=== PATIENT | male | born 1980 | race African-American/Black ===

== ENCOUNTER 2020-03-20 17:30 | Emergency (ER) | payer OTHER ==
[~2020-03-20] VITALS: Ht 170.2 cm; Wt 90.9 kg
--- NOTE | 2020-03-20 18:17 | PHYS DOC ---
Past Medical History Past Medical History: No Pertinent History Smoking Status: Current Every Day Smoker General Adult EDM: Chief Complaint: COUGH HPI: HPI: Patient is a 39 year old male who presents with a cough for 6 weeks. Patient says he has had a subjective fever and chills cough headache sneezing for the last 6 weeks. He says he does not seek medical treatment in this timeframe. Patient has not had any vomiting or diarrhea. Patient has no known sick contacts Review of Systems: Review of Systems: Constitutional: Subjective fever, chills Eyes: Denies change in visual acuity. [] HENT: Complains of nasal congestion and sore throat Respiratory: Reports cough but no shortness of breath Cardiovascular: Denies chest pain or edema. [] GI: Denies abdominal pain, nausea, vomiting, bloody stools or diarrhea. [] : Denies dysuria. [] Musculoskeletal: Denies back pain or joint pain. [] Integument: Denies rash. [] Neurologic: Denies headache, focal weakness or sensory changes. [] Endocrine: Denies polyuria or polydipsia. [] Lymphatic: Denies swollen glands. [] Psychiatric: Denies depression or anxiety. [] Heart Score: Risk Factors: Risk Factors: DM, Current or recent (<one month) smoker, HTN, HLP, family history of CAD, obesity. Risk Scores: Score 0 - 3: 2.5% MACE over next 6 weeks - Discharge Home Score 4 - 6: 20.3% MACE over next 6 weeks - Admit for Clinical Observation Score 7 - 10: 72.7% MACE over next 6 weeks - Early Invasive Strategies Physical Exam: PE: Constitutional: Well developed, well nourished, no acute distress, non-toxic appearance. [] HENT: Normocephalic, atraumatic, bilateral external ears normal, oropharynx moist, no oral exudates, nose normal. [] Eyes: PERRLA, EOMI, conjunctiva normal, no discharge. [] Neck: Normal range of motion, no tenderness, supple, no stridor. [] Cardiovascular:Heart rate regular rhythm, no murmur [] Lungs & Thorax: Bilateral breath sounds clear to auscultation [] Abdomen: Bowel sounds normal, soft, no tenderness, no masses, no pulsatile masses. [] Skin: Warm, dry, no erythema, no rash. [] Back: No tenderness, no CVA tenderness. [] Extremities: No tenderness, no cyanosis, no clubbing, ROM intact, no edema. [] Neurologic: Alert and oriented X 3, normal motor function, normal sensory function, no focal deficits noted. [] Psychologic: Affect normal, judgement normal, mood normal. [] Current Patient Data: Vital Signs: Vital Signs Date Time Temp Pulse Resp B/P (MAP) Pulse Ox O2 Delivery O2 Flow Rate FiO2 03/20/20 20:15 67 18 136/85 (102) 100 Room Air 03/20/20 20:00 81 20 126/95 (105) 100 Room Air 03/20/20 19:45 69 18 134/84 (101) 100 Room Air 03/20/20 19:30 79 18 143/86 (105) 100 Room Air 03/20/20 19:15 76 18 125/83 (97) 100 Room Air 03/20/20 18:10 98.1 77 18 128/90 (103) 100 Room Air 98.1 EKG: EKG: [] Radiology/Procedures: Radiology/Procedures: [][facility] [address] [place] [address] IMAGING REPORT Signed PATIENT: TANJA BANUELOS ACCOUNT: [id number] : 1980 LOCATION: ER AGE: 39 SEX: M EXAM STATUS: REG ER ORD. PHYSICIAN: JAYJAY HENDERSON MD REASON: cough, covid r/o PROCEDURE: PORTABLE CHEST 1V Examination: PORTABLE CHEST 1V History: Reason: cough, covid r/o / Spl. Instructions: / History: Comparison/Correlation: None Findings: Portable upright frontal view of the chest was obtained. Heart size and pulmonary vasculature are normal. No infiltrate or pleural effusion. No pneumothorax. Bony structures are unremarkable. Impression: No active disease. Electronically signed by: Amol Posadas MD (03/20/2020 7:51 PM) [facility] DICTATED and SIGNED BY: AMOL POSADAS MD DATE: 03/20/201950 Course & Med Decision Making: Course & Med Decision Making COVID-19 CRITERIA: The patient was evaluated during the global COVID-19 pandemic, and that diagnosis was suspected/considered upon their initial presentation. Their evaluation, treatment and testing was consistent with current guidelines for patients who present with complaints or symptoms that may be related to COVID-19. Pertinent Labs and Imaging studies reviewed. (See chart for details) [] 39-year-old male with various complaints been going on for over a month. Patient describes a cough and a fever. Patient is nontoxic. No respiratory distress. Chest is clear. He has been swabbed for COVID and told to isolate till results are back. Patient stable for discharge with return precautions. Dragon Disclaimer: Dragon Disclaimer: This electronic medical record was generated, in whole or in part, using a voice recognition dictation system. Departure Departure Impression: Primary Impression: Cough Disposition: 01 HOME, SELF-CARE Condition: STABLE Referrals: pcp (PCP/Family) 2-3 dayd Patient Instructions: Cough, Adult Additional Instructions: You have been tested for or diagnosed with COVID-19. It is an infection caused by a new type of coronavirus. COVID-19 will cause cold-like or mild flu symptoms in most. It can cause more severe symptoms like problems breathing in some. There is no treatment for COVID-19. The body will clear the infection over time. Self-care will help to ease discomfort. Steps to Take: Self-Care Rest as needed. Healthy habits may help you feel better. Steps include: Choose healthy foods including fruits and vegetables. Drink water throughout the day. Get plenty of sleep each night. If you smoke, try to quit. It may ease breathing. Avoid alcohol. Keep Others Healthy The virus can spread to others. Droplets are released every time you sneeze or cough. The droplets can get into the mouth, nose, or eyes of people near you and lead to infection. To lower the chances of spreading COVID-19 to others: Stay at home until your doctor has said it is safe to leave. If you tested positive this will mean staying isolated until both of the following are true: At least 7 days have passed since the start of illness. You are free of fever for at least 72 hours without the use of medicine. During this time: - Avoid public areas, events, or transportation. Do not return to work or school until your doctor has said it is safe to do so. - Call ahead if you need to go to a medical center. Let them know you may have COVID-19. It will help them guide you where to go. They may also ask you to wear a facemask when you come to the office. - If you call for emergency medical services, let them know you may have COVID- 19. While at home: - Try to avoid close contact with others. Stay about 6 feet away. - If possible, spend most of your time in a separate room from others. - Use a face mask if you will be in close contact with others such as sharing a room or vehicle. - Have someone wipe down common surfaces in the home. Use household global analytics head every day on areas like doorknobs, counters, or sinks. - Cough or sneeze into a tissue. Throw the tissue away right after use. If a tissue is not available, cough or sneeze into your elbow. - Wash your hands often. Wash them after sneezing or coughing. Use soap and water and wash for at least 20 seconds. Alcohol based hand fur cleaner can be used if soap and water is not available. - Do not prepare food for others. Avoid sharing personal items like forks, spoons, or toothbrushes. - Avoid close contact with pets while you are sick. There is no evidence of the virus passing to pets. This is a safety step until more is known about this virus. Isolation can be frustrating. Social interaction can help. Keep in touch with friends and family through phone and tech options. You can still interact with others in your home, just keep a safe distance of about 6 feet. Follow-up: Your doctors office will check in with you to see if there are any changes in your health. You may be asked to keep track of symptoms to share with them. They will also let you know when you are clear to be in public again. Problems to Look Out For: Contact your doctor if your recovery is not going as you expect. Get emergency care if you have problems such as: - Trouble breathing - Nonstop chest pain or pressure - Changes in awareness, confusion, or problems waking - Lips or face have bluish color - Worsening of symptoms If you think you have an emergency, call for emergency medical services right away. As taken from [facility] EMERGENCY DEPARTMENT GENERAL DISCHARGE INSTRUCTIONS Thank you for coming to [facility] Emergency Department (ED) today and trusting us with you care. We trust that you had a positivie experience in our Emergency Department. If you wish to speak to the department management, you may call the Director at [phone]. YOUR FOLLOW UP INSTRUCTIONS ARE FOLLOWS: 1. Do you have a private Doctor? If you do not have a private doctor, please ask for a resource list of physicians or clinics that may be able to assist you with follow up care. 2. The Emergency Physicain has interpreted your x-rays. The X-Ray specialist will also review them. If there is a change in the findings, you will be notified in 48 hours when at all possible. 3. A lab test or culture has been done, your results will be reviewed and you will be notified if you need a change in treatment. ADDITIONAL INSTRUCTIONS AND INFORMATION: 1. Your care today has been supervised by a physician who is specially trained in emergency care. Many problems require more than one evaluation for a complete diagnosis and treatment. We recommend that you schedule your follow up appointment as recommended to ensure complete treatment of you illness or injury. If you are unable to obtain follow up care and continue to have a problem, or if your consition worsens, we recommend that you return to the ED. 2. We are not able to safely determine your condition over the phone nor are we able to give sound medical advice over the phone. For these safety reasons, if you call for medical advice we will ask you to come to the ED for further evaluation. 3. If you have any questions regarding these discharge instructions please call the ED at [phone]. SAFETY INFORMATION: In the interest of safety, wellness, and injury prevention; we encourage you to wear your sealbelt, if you smoke; quite smoking, and we encourage family to use a protective helmet for bicycling and other sporting events that present an increased risk for head injury. IF YOUR SYMPTOMS WORSEN OR NEW SYMPTOMS DEVELOP, OR YOU HAVE CONCERNS ABOUT YOUR CONDITION; OR IF YOUR CONDITION WORSENS WHILE YOU ARE WAITING FOR YOUR FOLLOW UP APPOINTMENT; EITHER CONTACT YOUR PRIMARY CARE DOCTOR, THE PHYSICIAN WHOSE NAME AND NUMBER YOU WERE GIVEN, OR RETURN TO THE ED IMMEDIATELY. Justicifation of Admission Dx: Justifications for Admission: Justification of Admission Dx: N/A JAYJAY HENDERSON MD Mar 20, 2020 18:17
--- NOTE | 2020-03-20 19:54 | RAD ---
Examination: PORTABLE CHEST 1V History: Reason: cough, covid r/o / Spl. Instructions: / History: Comparison/Correlation: None Findings: Portable upright frontal view of the chest was obtained. Heart size and pulmonary vasculature are normal. No infiltrate or pleural effusion. No pneumothorax. Bony structures are unremarkable. Impression: No active disease. Electronically signed by: Vincent Prakash MD (03/20/2020 7:51 PM) [facility]
[2020-03-20 20:15] VITALS: BP 136/85
== END 2020-03-20 20:20 | disposition home or self-care (01) ==
LOC: ER 17:30
DX: R05 Cough (principal); Z20.828 Contact with and (suspected) exposure to other viral communicable diseases; R50.9 Fever, unspecified; R51 Headache; R06.7 Sneezing; F17.200 Nicotine dependence, unspecified, uncomplicated
CPT/HCPCS: 71045; 99285; U0003

== ENCOUNTER 2021-04-13 23:58 | Emergency (ER) | payer OTHER ==
[~2021-04-13] VITALS: Ht 170.2 cm; Wt 100.0 kg
[2021-04-14 01:13] VITALS: BP 117/69
[2021-04-14 01:20] LABS: BILIRUBIN,URINE SMALL (NEG); CLARITY,URINE CLEAR; COLOR,URINE YELLOW; NITRITE,URINE NEGATIVE (NEG); PROTEIN,URINE NEGATIVE (NEG-TRACE)
[2021-04-14 01:28] LABS: BACTERIA,URINE 0 /HPF (0-FEW)
[2021-04-14] MEDS ORDERED: DOXY-96 PO (02:32)
--- NOTE | 2021-04-14 02:34 | PHYS DOC ---
Past Medical History Past Medical History: No Pertinent History Past Surgical History: No Surgical History Smoking Status: Current Every Day Smoker Alcohol Use: None General Adult EDM: Chief Complaint: MULTIPLE COMPLAINTS HPI: HPI: Patient is a 40 year old MALE presents with the chief complaint of dizzness, cough, and testicular pain x 1 week. Patient initially states testicular pain started months ago but then endorse 1 week with all other symptoms. Denies sexual activity- no dysuria, penile discharge. Pain is located on bilateral testicles. Not vaccinated against covid. Review of Systems: Review of Systems: Constitutional: Denies fever or chills. [] Eyes: Denies change in visual acuity. [] HENT: Denies nasal congestion or sore throat. [] Respiratory: Denies cough or shortness of breath. [Positive cough] Cardiovascular: Denies chest pain or edema. [] GI: Denies abdominal pain, nausea, vomiting, bloody stools or diarrhea. [] : Denies dysuria. [Positive testicular pain] Musculoskeletal: Denies back pain or joint pain. [] Integument: Denies rash. [] Neurologic: Denies headache, focal weakness or sensory changes. [Positive dizziness] Endocrine: Denies polyuria or polydipsia. [] Lymphatic: Denies swollen glands. [] Psychiatric: Denies depression or anxiety. [] Heart Score: C/O Chest Pain: N/A Risk Factors: Risk Factors: DM, Current or recent (<one month) smoker, HTN, HLP, family history of CAD, obesity. Risk Scores: Score 0 - 3: 2.5% MACE over next 6 weeks - Discharge Home Score 4 - 6: 20.3% MACE over next 6 weeks - Admit for Clinical Observation Score 7 - 10: 72.7% MACE over next 6 weeks - Early Invasive Strategies Allergies: Allergies: Allergies Coded Allergies Type Severity Reaction Last Updated Verified No Known Drug Allergies 04/14/21 No Physical Exam: PE: General: alert, no acute distress. Skin: warm, dry and intact, no erythema, no rash. HENT: bilateral external ears normal, oropharynx moist, nose normal. Head:: Normocephalic, atraumatic. Neck: Trachea midline. Eyes: EOMI, Normal conjunctiva, No drainage CARDIOVASCULAR: Regular rate and rhythm RESPIRATORY: No respiratory distress Back: Full range of motion. MUSCULOSKELETAL: Full range of motion of bilateral upper and lower extremities. GASTROINTESTINAL: Abdomen soft without rebound or guarding. NEUROLOGICAL: Alert and noted to person, place and time. No neurological defi cits observed Psychiatric: Cooperative. Normal judgment -no scrotal edema testicles tender no masses palpated Current Patient Data: Labs: Laboratory Tests Test 04/14/21 01:05 04/14/21 01:55 Urine Collection Type Unknown Urine Color Yellow Urine Clarity Clear Urine pH 6.0 (<5.0-8.0) Urine Specific Claude >=1.030 (1.000-1.030) Urine Protein Negative mg/dL (NEG-TRACE) Urine Glucose (UA) Negative mg/dL (NEG) Urine Ketones (Stick) Trace mg/dL (NEG) Urine Blood Negative (NEG) Urine Nitrite Negative (NEG) Urine Bilirubin Small (NEG) Urine Urobilinogen Dipstick 1.0 mg/dL (0.2 mg/dL) Urine Leukocyte Esterase Negative (NEG) Urine RBC 1-2 /HPF (0-2) Urine WBC 1-4 /HPF (0-4) Urine Squamous Epithelial Cells Mod /LPF Urine Bacteria 0 /HPF (0-FEW) Urine Mucus Marked /LPF SARS-CoV-2 Antigen (Rapid) Negative (NEGATIVE) Vital Signs: Vital Signs Date Time Temp Pulse Resp B/P (MAP) Pulse Ox O2 Delivery O2 Flow Rate FiO2 04/14/21 01:13 79 18 117/69 (85) 100 Room Air 04/14/21 01:07 98.0 98.0 EKG: EKG: [] Radiology/Procedures: Radiology/Procedures: [] Course & Med Decision Making: Course & Med Decision Making Pertinent Labs and Imaging studies reviewed. (See chart for details) [] Urine do not suspect testicular torsion based on exam and length of discomfort. Did not palpate any masses. Will plate was patient on doxycycline for upper respiratory cough and epididymitis. Dragon Disclaimer: Dragon Disclaimer: This electronic medical record was generated, in whole or in part, using a voice recognition dictation system. Departure Departure Impression: Primary Impression: Testicular pain, unspecified Additional Impression: Cough Disposition: HOME / SELF CARE / HOMELESS Condition: STABLE Referrals: NO PCP (PCP) Patient Instructions: Cough, Adult, Testicular Problems and Self-Exam Scripts Doxycycline Hyclate (DOXYCYCLINE HYCLATE) 100 Mg Tablet.dr 1 TAB PO BID, #20 TAB Prov: BROOKLYN SMITH DO 04/14/21 BROOKLYN SMITH DO Apr 14, 2021 02:34
== END 2021-04-14 03:00 | disposition home or self-care (01) ==
LOC: ER 23:58
DX: N50.811 Right testicular pain (principal); Z20.822 Contact with and (suspected) exposure to COVID-19; N50.812 Left testicular pain; R05 Cough; F17.200 Nicotine dependence, unspecified, uncomplicated
CPT/HCPCS: 81001; 87426; 99283

== ENCOUNTER 2021-06-08 20:34 | Emergency (ER) | payer OTHER ==
[~2021-06-08] VITALS: Ht 170.2 cm; Wt 93.8 kg
[~2021-06-08 20:34] MED LIST: DOXY-96 PO
[2021-06-09 01:10] VITALS: BP 125/84
== END 2021-06-09 03:14 | disposition left against medical advice (07) ==
LOC: ER 20:34
DX: R05.9 Cough, unspecified (principal); R06.7 Sneezing; Z53.21 Procedure and treatment not carried out due to patient leaving prior to being seen by health care provider

== ENCOUNTER 2021-06-15 03:54 | Emergency (ER) | payer OTHER ==
[~2021-06-15] VITALS: Ht 170.2 cm; Wt 97.6 kg
[2021-06-15 04:48] LABS: BILIRUBIN,URINE NEGATIVE (NEG); CLARITY,URINE CLEAR; COLOR,URINE YELLOW; NITRITE,URINE NEGATIVE (NEG); PH,URINE 5.5 (<5.0-8.0); PROTEIN,URINE NEGATIVE (NEG-TRACE)
[2021-06-15 05:02] LABS: BACTERIA,URINE 0 /HPF (0-FEW); RBC,URINE 0 /HPF (0-2)
[2021-06-15] MEDS ORDERED: cefTRIAXone IM 500 MG VIAL. IM ONE (05:15)
[2021-06-15] MEDS ORDERED: DOXY100C3 PO (05:22)
--- NOTE | 2021-06-15 05:22 | PHYS DOC ---
Past Medical History Past Medical History: No Pertinent History Past Surgical History: No Surgical History Smoking Status: Current Every Day Smoker Alcohol Use: None General Adult EDM: Chief Complaint: MULTIPLE COMPLAINTS HPI: HPI: Patient is a 41 year old male who presents with complaints of testicular swelling/pain. States it has been present since February. Has been seen at [facility] and [facility], and has had ultrasounds that have been negative. States that he has been given follow-up, but has not followed up with any outpatient providers. States it is not improved since then. Also complains of cough and congestion over the same timeframe. States he has had negative Covid test in the past. Review of Systems: Review of Systems: Constitutional: Denies fever or chills. [] Eyes: Denies change in visual acuity. [] HENT: Ports nasal congestion. Denies sore throat. [] Respiratory: Reports cough. Denies shortness of breath. [] Cardiovascular: Denies chest pain or edema. [] GI: Denies abdominal pain, nausea, vomiting, bloody stools or diarrhea. [] : Reports testicular pain and swelling bilaterally. Denies dysuria. [] Musculoskeletal: Denies back pain or joint pain. [] Integument: Denies rash. [] Neurologic: Denies headache, focal weakness or sensory changes. [] Endocrine: Denies polyuria or polydipsia. [] Lymphatic: Denies swollen glands. [] Psychiatric: Denies depression or anxiety. [] Heart Score: C/O Chest Pain: N/A Current Medications: Current Medications Medications (Trade) Dose Ordered Sig/Emiliano Start Time Stop Time Status Last Admin Dose Admin Ceftriaxone Sodium (Rocephin Im) 500 mg 1X ONCE 06/15/21 05:15 06/15/21 05:16 UNV Allergies: Allergies: Allergies Coded Allergies Type Severity Reaction Last Updated Verified No Known Drug Allergies 04/14/21 No Physical Exam: PE: Constitutional: Well developed, well nourished, no acute distress, non-toxic appearance. [] HENT: Normocephalic, atraumatic, bilateral external ears normal, oropharynx moist, no oral exudates, nose normal. [] Eyes: PERRLA, EOMI, conjunctiva normal, no discharge. [] Neck: Normal range of motion, no tenderness, supple, no stridor. [] Cardiovascular:Heart rate regular rhythm, no murmur [] Lungs & Thorax: Bilateral breath sounds clear to auscultation [] Abdomen: Bowel sounds normal, soft, no tenderness, no masses, no pulsatile masses. : Normal appearance of genitalia. No inguinal lymph node enlargement. States testes are slightly tender posteriorly. Normal size of testes and epididymis. No growths or masses. Normal testicular lie. Cremasteric reflex intact. ] Skin: Warm, dry, no erythema, no rash. [] Back: No tenderness, no CVA tenderness. [] Extremities: No tenderness, no cyanosis, no clubbing, ROM intact, no edema. [] Neurologic: Alert and oriented X 3, normal motor function, normal sensory function, no focal deficits noted. [] Psychologic: Affect normal, judgement normal, mood normal. [] Current Patient Data: Labs: Laboratory Tests Test 06/15/21 04:24 Urine Collection Type Unknown Urine Color Yellow Urine Clarity Clear Urine pH 5.5 (<5.0-8.0) Urine Specific Forreston >=1.030 (1.000-1.030) Urine Protein Negative mg/dL (NEG-TRACE) Urine Glucose (UA) Negative mg/dL (NEG) Urine Ketones (Stick) Negative mg/dL (NEG) Urine Blood Negative (NEG) Urine Nitrite Negative (NEG) Urine Bilirubin Negative (NEG) Urine Urobilinogen Dipstick 1.0 mg/dL (0.2 mg/dL) Urine Leukocyte Esterase Negative (NEG) Urine RBC 0 /HPF (0-2) Urine WBC 1-4 /HPF (0-4) Urine Squamous Epithelial Cells Few /LPF Urine Bacteria 0 /HPF (0-FEW) Urine Mucus Mod /LPF Vital Signs: Vital Signs Date Time Temp Pulse Resp B/P (MAP) Pulse Ox O2 Delivery O2 Flow Rate FiO2 06/15/21 04:20 98.6 69 18 132/86 (101) 98 Room Air 98.6 EKG: EKG: [] Radiology/Procedures: Radiology/Procedures: [] Course & Med Decision Making: Course & Med Decision Making Pertinent Labs and Imaging studies reviewed. (See chart for details) Patient is a 41-year-old male who presents with several months of testicular discomfort and reported swelling. The area that he points to for swelling, appears to be a normal epididymis bilaterally. He does have epididymal tenderness bilaterally. Will obtain scrotal ultrasound to ensure good blood flow, no masses, no infectious changes. UA shows mild elevation in WBCs. Will send GC/chlamydia and treat empirically with ceftriaxone and a course of doxycycline. Jennifer Disclaimer: Jennifer Disclaimer: This electronic medical record was generated, in whole or in part, using a voice recognition dictation system. Departure Departure Impression: Primary Impression: Testicular pain Disposition: HOME / SELF CARE / HOMELESS Condition: STABLE Referrals: NO PCP (PCP) Additional Instructions: We are treating you for potential infection. Please take full course of doxycycline as prescribed. Please call one of the follow practice locations for urology follow up. [facility] / [place], [place] [address] [place] [address] [place], [place] [id number] [place] [address] [place] [address] [facility], [address] [place] [address] Scripts Doxycycline Hyclate (DOXYCYCLINE HYCLATE) 100 Mg Capsule 1 CAP PO BID for 7 Days, #14 CAP 0 Refills Prov: AVA SIM MD 06/15/21 AVA SIM MD Jun 15, 2021 05:22
--- NOTE | 2021-06-15 06:20 | RAD ---
EXAMINATION: US TESTICULAR (SCROTAL ULTRASOUND) CLINICAL HISTORY: Bilateral testicular pain TECHNIQUE: Sonography of the scrotal contents with color flow and spectral Doppler imaging of the hector ticular vasculature was performed. COMPARISON: 11/06/2019 FINDINGS: RIGHT SCROTUM: - Right Testis: 3.7 x 2.2 x 2.2 cm. Homogeneous with no calcifications or mass. Normal intratestic ular arterial and venous flow with normal spectral waveforms. - Right Epididymis: Epididymal head measures 7 mm. Normal sonographic appearance and blood flow. - Hydrocele: None. - Varicocele: Absent. LEFT SCROTUM: - Left Testis: 4.1 x 2.3 x 2.0 cm. Homogeneous with no calcifications or mass. Normal intratesticu lar arterial and venous flow with normal spectral waveforms. - Left Epididymis: Epididymal head measures 5 mm. Normal sonographic appearance and blood flow. - Hydrocele: None. - Varicocele: Absent. IMPRESSION: Unremarkable exam. Electronically signed by: Jose Luis Finley DO (06/15/2021 6:18 AM) [facility]
[2021-06-15 06:48] VITALS: BP 125/77
--- NOTE | 2021-06-15 17:53 | NUR ---
IP: Attempted to contact pt concerning covid results. No answer, left a voicemail to return the call.
--- NOTE | 2021-06-16 16:14 | NUR ---
IP: Made a second attempt to contact pt concerning covid results. Left a second voicemail to return the call.
== END 2021-06-15 06:52 | disposition home or self-care (01) ==
LOC: ER 03:54
DX: N50.812 Left testicular pain (principal); N50.811 Right testicular pain; R09.81 Nasal congestion; F17.200 Nicotine dependence, unspecified, uncomplicated; Z20.822 Contact with and (suspected) exposure to COVID-19
CPT/HCPCS: 76870; 81001; 87426; 87491; 87591; 96372; 99285; J0696; U0003; U0005

== ENCOUNTER 2021-06-25 22:25 | Emergency (ER) | payer OTHER ==
[~2021-06-25] VITALS: Ht 170.2 cm; Wt 79.5 kg
[~2021-06-25 22:25] MED LIST changes: +DOXY100C3 PO
[2021-06-25 23:18] VITALS: BP 128/81
--- NOTE | 2021-06-25 23:55 | PHYS DOC ---
Past Medical History Past Medical History: No Pertinent History Past Surgical History: No Surgical History Smoking Status: Current Every Day Smoker Alcohol Use: None General Adult EDM: Chief Complaint: TESTICULAR PAIN OR INJURY HPI: HPI: Patient is a 41 year old here with report of feeling "lumps" on his testicles. He reports that he had some right sided testicle pain. He denies any swelling, skin changes, redness, dysuria, denies penile discharge. Denies any urinary symptoms. He denies pelvic or abdominal pain. Denies nausea, vomiting, anorexia. Denies bowel habit changes. He has been seen here multiple times for similar symptoms, including recently. He has had multiple unremarkable/negative ultrasound imaging studies. The last time he was here he was empirically treated for urethritis and reports that he completed a course of doxycycline. He has not followed up with a primary care physician for this. His main concern is his ability to obtain a meal at this time. Review of Systems: Review of Systems: Constitutional: Denies fever or chills. [] Eyes: Denies change in visual acuity. [] HENT: Denies nasal congestion or sore throat. [] Respiratory: Denies cough or shortness of breath. [] Cardiovascular: Denies chest pain or edema. [] GI: Denies abdominal pain, nausea, vomiting, bloody stools or diarrhea. [] : Denies dysuria. Denies penile discharge. Denies hematuria. Denies urinary urgency or frequency. Reports testicle pain and feeling subjective "lumps." Musculoskeletal: Denies back pain or joint pain. [] Integument: Denies rash. [] Neurologic: Denies headache, focal weakness or sensory changes. [] Endocrine: Denies polyuria or polydipsia. [] Lymphatic: Denies swollen glands. [] Psychiatric: Tonic but unchanged mood disturbance. Heart Score: C/O Chest Pain: No Risk Factors: Risk Factors: DM, Current or recent (<one month) smoker, HTN, HLP, family history of CAD, obesity. Risk Scores: Score 0 - 3: 2.5% MACE over next 6 weeks - Discharge Home Score 4 - 6: 20.3% MACE over next 6 weeks - Admit for Clinical Observation Score 7 - 10: 72.7% MACE over next 6 weeks - Early Invasive Strategies Allergies: Allergies: Allergies Coded Allergies Type Severity Reaction Last Updated Verified No Known Drug Allergies 04/14/21 No Physical Exam: PE: Constitutional: Well developed, well nourished, no acute distress, non-toxic appearance. [] HENT: Normocephalic, atraumatic Neck: Trachea is midline Cardiovascular: Well-perfused appearing, no peripheral edema, heart is regular rate and rhythm, +2 radial and posterior tibial pulses. Lungs & Thorax: Bilateral breath sounds clear to auscultation [] Abdomen: Bowel sounds normal, soft, no tenderness, no masses, no pulsatile masses. [] : Testes are descended bilaterally, no palpable tenderness. No palpable abnormalities or masses noted on testicle exam. No palpable hernia. Penile urethra meatus is clean, dry, intact without discharge. No swelling of the glands. No skin abnormalities of the scrotum. Skin: Warm, dry, no erythema, no rash. [] Back: No tenderness, no CVA tenderness. [] Extremities: No tenderness, no cyanosis, no clubbing, ROM intact, no edema. [] Neurologic: Alert and oriented X 3, normal motor function, normal sensory function, no focal deficits noted. [] Psychologic: Bizarre affect, he is overall cooperative. Current Patient Data: Vital Signs: Vital Signs Date Time Temp Pulse Resp B/P (MAP) Pulse Ox O2 Delivery O2 Flow Rate FiO2 06/25/21 23:18 97.8 82 16 128/81 (97) 99 Room Air 97.8 EKG: EKG: [] Radiology/Procedures: Radiology/Procedures: [] Course & Med Decision Making: Course & Med Decision Making Pertinent Labs and Imaging studies reviewed. (See chart for details) The findings, differential diagnosis and plan of care discussed with him. No indication for emergent imaging at this time. He has a benign exam. He is strongly urged to follow-up with primary care physician for further evaluation and treatment. He ate a meal tray here. He reports no further current complaints. No indication for further emergency intervention at this time. Return precautions are given. Dragon Disclaimer: Jennifer Disclaimer: This electronic medical record was generated, in whole or in part, using a voice recognition dictation system. Departure Departure Impression: Primary Impression: Chronic pain in testicle Disposition: HOME / SELF CARE / HOMELESS Condition: STABLE Referrals: NO PCP (PCP) Patient Instructions: Pain of Unknown Etiology (Pain without a known Cause) Additional Instructions: You may use [id number] Tylenol or ibuprofen for pain. Your ultrasound that you recently had was negative. Your exam today is unremarkable. Urinalysis is unremarkable. Return for any acute changes in symptoms, severe abdominal pain, vomiting, dehydration, fever 100.4 or higher or any other concerns. Contact your primary care physician for follow-up. NICHO GRANADO DO Jun 25, 2021 23:55
[2021-06-26 00:10] LABS: BILIRUBIN,URINE NEGATIVE (NEG); CLARITY,URINE CLEAR; COLOR,URINE YELLOW; NITRITE,URINE NEGATIVE (NEG); PH,URINE 5.5 (<5.0-8.0); PROTEIN,URINE NEGATIVE (NEG-TRACE)
[2021-06-26 00:19] LABS: BACTERIA,URINE 0 /HPF (0-FEW); RBC,URINE 0 /HPF (0-2); WBC,URINE RARE /HPF (0-4)
== END 2021-06-26 01:24 | disposition home or self-care (01) ==
LOC: ER 22:25
DX: G89.29 Other chronic pain (principal); N50.811 Right testicular pain; F17.200 Nicotine dependence, unspecified, uncomplicated
CPT/HCPCS: 81001; 87491; 87591; 99283

== ENCOUNTER 2021-07-28 15:21 | Emergency (ER) | payer OTHER ==
[~2021-07-28] VITALS: Ht 170.2 cm; Wt 78.1 kg
[2021-07-28 16:26] VITALS: BP 137/71
--- NOTE | 2021-07-28 17:02 | RAD ---
Single AP view of the chest. Comparison: 03/20/2020. Indication: Fever and cough Findings: The heart is at the upper limits normal but stable. There is no pneumothorax or effusion. No air spa ce or interstitial disease. Impression: 1. No acute cardiopulmonary process. Electronically signed by: Virgilio Montanez MD (07/28/2021 5:00 PM) [facility]
[2021-07-28 17:20] LABS: INFLUENZA A PATIENT NEGATIVE (NEGATIVE); INFLUENZA B PATIENT NEGATIVE (NEGATIVE)
--- NOTE | 2021-07-28 17:40 | PHYS DOC ---
Past Medical History Past Medical History: No Pertinent History Past Surgical History: No Surgical History Smoking Status: Current Every Day Smoker Alcohol Use: None General Adult EDM: Chief Complaint: FLU SYMPTOM HPI: HPI: Patient is a 41 year old male with no significant medical history who presents today complaining of a headache, cough, chills, body aches, subjective fevers, symptoms began today. Review of Systems: Review of Systems: Constitutional: Reports fever, body aches and chills Eyes: Denies change in visual acuity. [] HENT: Denies nasal congestion or sore throat. [] Respiratory: Reports cough, denies shortness of breath. [] Cardiovascular: Denies chest pain or edema. [] GI: Denies abdominal pain, nausea, vomiting, bloody stools or diarrhea. [] : Denies dysuria. [] Musculoskeletal: Denies back pain or joint pain. [] Integument: Denies rash. [] Neurologic: Denies headache, focal weakness or sensory changes. [] Psychiatric: Denies depression or anxiety. [] Heart Score: C/O Chest Pain: N/A Risk Factors: Risk Factors: DM, Current or recent (<one month) smoker, HTN, HLP, family history of CAD, obesity. Risk Scores: Score 0 - 3: 2.5% MACE over next 6 weeks - Discharge Home Score 4 - 6: 20.3% MACE over next 6 weeks - Admit for Clinical Observation Score 7 - 10: 72.7% MACE over next 6 weeks - Early Invasive Strategies Current Medications: Current Medications Medications (Trade) Dose Ordered Sig/Emiliano Start Time Stop Time Status Last Admin Dose Admin Ibuprofen (Motrin) 600 mg 1X ONCE 07/28/21 17:45 07/28/21 17:46 Allergies: Allergies: Allergies Coded Allergies Type Severity Reaction Last Updated Verified No Known Drug Allergies 04/14/21 No Physical Exam: PE: Constitutional: Well developed, well nourished, no acute distress, non-toxic appearance. [] HENT: Normocephalic, atraumatic, bilateral external ears normal, oropharynx moist, no oral exudates, nose normal. [] Eyes: PERRLA, EOMI, conjunctiva normal, no discharge. [] Neck: Normal range of motion, no tenderness, supple, no stridor. [] Cardiovascular:Heart rate regular rhythm, no murmur [] Lungs & Thorax: Bilateral breath sounds clear to auscultation [] Abdomen: Bowel sounds normal, soft, no tenderness, no masses, no pulsatile masses. [] Skin: Warm, dry, no erythema, no rash. [] Back: No tenderness, no CVA tenderness. [] Extremities: No tenderness, no cyanosis, no clubbing, ROM intact, no edema. [] Neurologic: Alert and oriented X 3, normal motor function, normal sensory function, no focal deficits noted. [] Psychologic: Affect normal, judgement normal, mood normal. [] Current Patient Data: Labs: Laboratory Tests Test 07/28/21 16:55 Influenza Type A Antigen Negative (NEGATIVE) Influenza Type B Antigen Negative (NEGATIVE) SARS-CoV-2 Antigen (Rapid) Negative (NEGATIVE) Vital Signs: Vital Signs Date Time Temp Pulse Resp B/P (MAP) Pulse Ox O2 Delivery O2 Flow Rate FiO2 07/28/21 16:26 98.5 88 18 137/71 (93) 98 Room Air 98.5 EKG: EKG: [] Radiology/Procedures: Radiology/Procedures: []PROCEDURE: CHEST AP ONLY Single AP view of the chest. Comparison: 03/20/2020. Indication: Fever and cough Findings: The heart is at the upper limits normal but stable. There is no pneumothorax or effusion. No air space or interstitial disease. Impression: 1. No acute cardiopulmonary process. Electronically signed by: Dav Wilkinson MD (07/28/2021 5:00 PM) [facility] DICTATED and SIGNED BY: DAV WILKINSON MD DATE: 07/28/21 [id number] 0 Course & Med Decision Making: Course & Med Decision Making Pertinent Labs and Imaging studies reviewed. (See chart for details) This is a 41-year-old male patient presented to the ED today complaining of ge neralized body aches, headache, chills, subjective fevers, and a cough that began today. Patient is afebrile in the ED. Chest x-ray is negative, negative influenza A and B. Supportive care measures recommended. Dragon Disclaimer: Dragon Disclaimer: This electronic medical record was generated, in whole or in part, using a voice recognition dictation system. Departure Departure Impression: Primary Impression: Fever Qualified Codes: R50.9 - Fever, unspecified Additional Impressions: Cough Chills Person under investigation for COVID-19 Disposition: HOME / SELF CARE / HOMELESS Condition: STABLE Referrals: NO PCP (PCP) follow up with your doctor in one week Patient Instructions: Cough, Adult, [id number], Fever, Adult, [id number] Additional Instructions: You were evaluated in the emergency room, your chest x-ray is negative, your flu test is negative, your rapid Covid test is negative. You have a pending Covid PCR test. Please quarantine yourself until results are back we will call you with results. Push fluids, maintain good and hygiene, take Tylenol Motrin for pain or fever. Follow-up with your doctor next week Scripts Naproxen (NAPROXEN) 500 Mg Tablet 1 TAB PO BID for pain, #14 TAB 0 Refills Prov: DILLON CHRISTIAN APRN 07/28/21 Cyclobenzaprine Hcl (CYCLOBENZAPRINE HCL) 10 Mg Tablet 1 TAB PO TID, #30 TAB Prov: DILLON CHRISTIAN APRN 07/28/21 DILLON CHRISTIAN APRN Jul 28, 2021 17:40
[2021-07-28] MEDS ORDERED: IBUPROFEN 200 MG TABLET. PO ONE (17:45)
[2021-07-28] MEDS ORDERED: CYCL10TA19 PO (19:20)
[2021-07-28] MEDS ORDERED: NAPR-514 PO (19:20)
== END 2021-07-28 18:15 | disposition home or self-care (01) ==
LOC: ER 15:21
DX: R50.9 Fever, unspecified (principal); Z20.822 Contact with and (suspected) exposure to COVID-19; R05.9 Cough, unspecified; M79.10 Myalgia, unspecified site; F17.200 Nicotine dependence, unspecified, uncomplicated
CPT/HCPCS: 71045; 87426; 87804; 99284; U0003; U0005